=== PATIENT | female | born 1955 | race Caucasian/White ===

== ENCOUNTER 2017-01-19 09:07 | Day surgery (SDC) | payer OTHER ==
[2017-01-14 16:30] VITALS: BMI 27.0
[2017-01-19] MEDS ORDERED: PROPOFOL 20 ML ONE (10:32)
[2017-01-19 12:09] VITALS: TEMP 97.7
[2017-01-19 12:10] VITALS: BP 104/60; PULSE 59
== END 2017-01-19 12:10 | disposition home or self-care (01) ==
LOC: FASU-ENDO 09:07
PROVIDERS: ATTEND Internal Medicine Gastroenterology
PROC: 0DJD8ZZ Inspection of Lower Intestinal Tract, Via Natural or Artificial Opening Endoscopic (ICD-10-PCS; principal; 2017-01-19 11:08)
DX: Z12.11 Encounter for screening for malignant neoplasm of colon (principal); K57.30 Diverticulosis of large intestine without perforation or abscess without bleeding

== ENCOUNTER 2017-10-19 09:58 | Day surgery (SDC) | payer OTHER ==
[2017-10-08 10:31] VITALS: BMI 28.9
[~2017-10-19 09:58] MED LIST: CEFAZOLIN 2 GM in DEXTROSE 5%-WATER - 50 ML IVPB ONE; CELECOXIB 200 MG CAPSULE PO ONE; GABAPENTIN 300 MG CAPSULE (FP) PO ONE; ROPIVICAINE 0.2%/MORPH PF/KETOROLAC - 51ML DISP.SYRINGE IA ONE; TRANEXAMIC ACID 1000 MG/10 ML VIAL IVPB ONE; TRANEXAMIC ACID 1000 MG/10 ML VIAL IVPUSH ONE; VANCOMYCIN 1,000 MG VIAL (RESTRICTED TO ID ONLY) IVPB ONE; oxyCODONE HCL 10 MG SUSTAINED ACTING TABLET PO ONE
[2017-10-19] MEDS ORDERED: oxyCODONE HCL 10 MG SUSTAINED ACTING TABLET ONE (10:53)
[2017-10-19] MEDS ORDERED: PANTOPRAZOLE 40 MG TABLET (FP) ONE (10:53)
[2017-10-19] MEDS ORDERED: GABAPENTIN 300 MG CAPSULE (FP) ONE (10:54)
[2017-10-19] MEDS ORDERED: CELECOXIB 200 MG CAPSULE ONE (10:54)
[2017-10-19] MEDS: PANTOPRAZOLE 40 MG TABLET (FP) PO ONE (10:55)
[2017-10-19] MEDS ORDERED: MIDAZOLAM HCL 2 MG/2 ML SINGLE DOSE VIAL ONE (11:35)
[2017-10-19] MEDS ORDERED: ROPIVICAINE 0.2%/MORPH PF/KETOROLAC - 51ML DISP.SYRINGE IA ONE ×4 (14:38→15:19)
[2017-10-19] MEDS ORDERED: TRANEXAMIC ACID 1000 MG/10 ML VIAL IVPB ONE ×2 (14:39→14:56)
[2017-10-19] MEDS ORDERED: VANCOMYCIN 1,000 MG VIAL (RESTRICTED TO ID ONLY) IVPB ONE ×2 (14:39→14:56)
[2017-10-19] MEDS ORDERED: oxyCODONE HCL 5 MG TABLET PO PRN ×2 (15:49→16:10)
--- NOTE | 2017-10-19 16:01 | HP ---
History & Physical Update - History History: No Change - Physical Physical: No Change - Assessment Currently as noted:: 61yo female with right knee medial OA for right knee medial MAKOplasty - Plan Plan: No Change
--- NOTE | 2017-10-19 16:02 | OP ---
Operative Note - Note: Operative Date: 10/19/17 Pre-Operative Diagnosis: right knee medial OA Operation: right knee medial MAKOplasty Post-Operative Diagnosis: Same as Pre-op Surgeon: Navdeep Handy Keno Writer/Runner: Jonas Calvin Anesthesia: Spinal Estimated Blood Loss (mls): 50
[2017-10-19] MEDS ORDERED: MAGNESIUM HYDROX 2400MG/30ML ORAL SUSPENSION 30 ML CUP PO PRN (16:03)
[2017-10-19] MEDS ORDERED: ONDANSETRON 4 MG/2 ML VIAL IVPUSH PRN (16:03)
[2017-10-19] MEDS ORDERED: MAG HYDROX/AL HYDROX/SIMETH 30 ML UNIT-DOSE CUP PO PRN (16:03)
[2017-10-19] MEDS ORDERED: ACETAMINOPHEN INJECTION 100 ML IVPB ONE (16:04)
[2017-10-19] MEDS ORDERED: KETOROLAC TROMETHAMINE 30 MG/1 ML VIAL ONE (16:04)
[2017-10-19] MEDS ORDERED: ACETAMINOPHEN 1000 MG/100 ML VIAL (NON FORMULARY) IVPB ONE (16:06)
[2017-10-19] MEDS ORDERED: KETOROLAC TROMETHAMINE 30 MG/1 ML VIAL IVPUSH ONE (16:10)
[2017-10-19] MEDS ORDERED: NORETHINDRONE ACET TD SCH (16:15)
[2017-10-19] MEDS ORDERED: KETOROLAC TROMETHAMINE 30 MG/1 ML VIAL IVPUSH SCH (16:15)
[2017-10-19] MEDS ORDERED: LACTATED RINGERS SOLUTION 1,000 ML IV SCH (16:15)
[2017-10-19] MEDS ORDERED: [UNRECOGNIZED DRUG - OTHER] TD SCH (16:15)
[2017-10-19] MEDS ORDERED: ESTRADIOL TD SCH (16:15)
[2017-10-19] MEDS ORDERED: traMADol HCL 50 MG TABLET PO ONE (16:15)
[2017-10-19] MEDS: CEFAZOLIN 2 GM/D5W 2 GM/50 ML ML IVPB SCH (17:57)
[2017-10-19] MEDS ORDERED: traMADol HCL 50 MG TABLET PO SCH (18:00)
--- NOTE | 2017-10-19 20:06 | SURG ---
Surgery Business Sales Consultant Note Business Sales Consultant: Jonas Calvin PA-C Date of Service: 10/19/17 Diagnosis: right knee medial osteoarthritis Procedure: Right knee medial MAKOplasty I was present for the entirety of the operative procedure. For further detail, please refer to operative report. Visit type - Case Type Case Type: Scheduled Admission - New patient This patient is new to me today: Yes Date on this admission: 10/19/17
[2017-10-19] MEDS: GABAPENTIN 300 MG CAPSULE (FP) PO SCH (21:44)
[2017-10-19] MEDS: ASCORBIC ACID 500 MG TABLET (FP) PO SCH (21:44)
[2017-10-19] MEDS: SENNOSIDES/DOCUSATE COMBO (SENNA PLUS) TABLET (UD) PO SCH (21:44)
[2017-10-19] MEDS: CELECOXIB 200 MG CAPSULE PO SCH (21:45)
[2017-10-19] MEDS: oxyCODONE HCL 10 MG SUSTAINED ACTING TABLET PO SCH (21:45)
[2017-10-19] MEDS ORDERED: PATIENT'S OWN MEDICATION (NON-FORMULARY) (Lifitegrast [Xiidra] 1 EACH) OU SCH (22:00)
[2017-10-20] MEDS ORDERED: DEXAMETHASONE SOD PHOSPHATE 10 MG/1 ML VIAL IVPB ONE
[2017-10-20] MEDS: KETOROLAC TROMETHAMINE 30 MG/1 ML VIAL IVPUSH SCH ×3 (00:52→13:05)
[2017-10-20] MEDS: traMADol HCL 50 MG TABLET PO SCH ×4 (00:53→17:37)
[2017-10-20] MEDS: CEFAZOLIN 2 GM/D5W 2 GM/50 ML ML IVPB SCH (02:13)
[2017-10-20] MEDS ORDERED: ASPIRIN 325 MG TABLET PO SCH (08:00)
[2017-10-20 08:32] LABS: ANION GAP 7 (8-16); CALCIUM 9.6 mg/dl (8.4-10.2); CO2 26 mmol/L (22-28); CREATININE 0.7 mg/dl (0.6-1.3); GLUCOSE,RANDOM 144 mg/dl (74-106)
[2017-10-20 08:43] LABS: MCH 32.3 pg (25.7-33.7); MCHC 34.1 g/dl (32.0-36.0); MEAN CELL VOLUME 94.9 fl (80-96); PLATELET COUNT 249 K/MM3 (134-434); RDW 12.3 % (11.6-15.6)
[2017-10-20] MEDS: SENNOSIDES/DOCUSATE COMBO (SENNA PLUS) TABLET (UD) PO SCH (09:23)
[2017-10-20] MEDS: CELECOXIB 200 MG CAPSULE PO SCH (09:23)
[2017-10-20] MEDS: PANTOPRAZOLE 40 MG TABLET (FP) PO ONE (09:23)
[2017-10-20] MEDS: GABAPENTIN 300 MG CAPSULE (FP) PO SCH (09:23)
[2017-10-20] MEDS: oxyCODONE HCL 10 MG SUSTAINED ACTING TABLET PO SCH (09:23)
[2017-10-20] MEDS: ASCORBIC ACID 500 MG TABLET (FP) PO SCH (09:23)
[2017-10-20] MEDS ORDERED: PANTOPRAZOLE 40 MG TABLET (FP) PO SCH (10:00)
[2017-10-20] MEDS ORDERED: MULTIVITAMINS (DAILY MVI) TABLET (FP) PO SCH (10:00)
--- NOTE | 2017-10-20 14:22 | PN ---
Progress Note (short form) - Note Progress Note: 61F POD1 s/p medial right knee makoplasty under spinal anesthetic with peripheral nerve blocks for post operative pain control. Pt is doing well, states that pain is well controlled, does not report any anesthetic complications. Sensory and motor function is intact in bilateral lower extremities.
[2017-10-20 14:26] VITALS: BP 109/44; PULSE 62; TEMP 98.3
--- NOTE | 2017-10-20 18:45 | PN ---
Progress Note (short form) - Note Progress Note: Pt seen and examined. Doing well. Walked 700+ feet today. AVSS Selected Entries 10/20/17 14:25 Temperature 98.3 F Pulse Rate 62 Respiratory 16 Rate Blood Pressure 109/44 O2 Sat by Pulse 99 Oximetry (%) Laboratory Tests 10/20/17 10/20/17 07:00 07:00 WBC 14.0 H Hgb 13.2 Hct 38.9 Plt Count 249 Sodium 135 L Potassium 4.8 Chloride 102 Carbon Dioxide 26 Anion Gap 7 L BUN 16 Creatinine 0.7 Random Glucose 144 H Calcium 9.6 Gen: NAD RLE: spotty SS drainage on Aquacel, less than 2cm. NVID A/P 61yo female POD#1 s/p right medial MAKOplasty partial knee replacement 1. D/C home today - f/u in office in 10-14 days
--- NOTE | 2017-10-20 18:53 | DS ---
Physical Examination Vital Signs: Vital Signs Temperature 98.3 F 10/20/17 14:25 Pulse Rate 62 10/20/17 14:25 Respiratory Rate 16 10/20/17 14:25 Blood Pressure 109/44 10/20/17 14:25 O2 Sat by Pulse Oximetry (%) 99 10/20/17 14:25 Labs: CBC, BMP 10/20/17 07:00 10/20/17 07:00 Discharge Summary Reason For Visit: OSTEOARTHRITIS RIGHT KNEE Current Active Problems Osteoarthritis of right knee (Acute) Procedures: Principal: right knee MAKOplasty partial (medial) knee replacement Hospital Course: Admitted for elective surgery. Procedure performed without complications. Pt received postoperative antibiotic prophylaxis and DVT ppx. Ambulated with physical therapy. Stable for discharge home with outpatient followup. Condition: Stable - Instructions Diet, Activity, Other Instructions: Dr. Handy - Knee Replacement Instructions Keep the Aquacel dressing on until removed by Dr. Handy in 10-14 days - it is antibacterial and waterproof and you can shower with it on. Call the office for a follow-up appointment with Dr. Handy in 10-14 days. [phone] Take one Aspirin 325mg daily for 6 weeks to prevent blood clots in your legs. Take one Pantoprazole 40mg daily for 6 weeks to protect against heartburn and ulcers. Take Celebrex 200mg twice daily for 30 days to reduce swelling and inflammation. Take a multivitamin, extra vitamin C supplement, and stool softener daily. For pain: *Mild pain (1-3/10): Take 1 Tramadol tablet every 4 hours as needed. Moderate pain (4-6/10): Take 1 Tramadol tablet and 1 Percocet tablet every 4 hours as needed. Severe pain (7-10/10): Take 1 Tramadol tablet and 2 Percocet tablets every 4 hours as needed. Activity: You can put as much weight on the operative leg as you want. Right after you get home, there will be a physical therapist coming to your house to help you walk around and bend/straighten your knee. After your follow-up appointment, you will be sent for more intensive outpatient physical therapy which will include machines and equipment that the home therapist cannot bring to your house. Always use a walker or cane for balance and to prevent falls. Disposition: [facility]/HOME HEALTH CARE - Home Medications Comprehensive Discharge Medication List: Ambulatory Orders Lifitegrast [Xiidra] 1 each OU BID 01/14/17 Calcium Carbonate/Vitamin D3 [Calcium 600-Vit D3 800 Caplet] 1 each PO DAILY Cholecalciferol (Vitamin D3) [Vitamin D3 -] 1,000 unit PO DAILY 10/08/17 Estradiol/Norethindrone Acet [Combipatch 0.05-0.14 mg Ptch] 1 each TD ASDIR Ascorbic Acid [Vitamin C -] 500 mg PO BID tablet 10/20/17 Aspirin [ASA -] 325 mg PO DAILY@0800 tablet 10/20/17 Celecoxib [CeleBREX -] 200 mg PO BID #60 capsule 10/20/17 Multivitamins [Multivit ([facility] Formul[facility])] 1 tab PO DAILY tab 10/20/17 Oxycodone HCl/Acetaminophen [Percocet 5-325 mg Tablet] 1 - 2 tab PO Q4H PRN #60 tablet MDD 8 10/20/17 Pantoprazole Sodium [Protonix -] 40 mg PO DAILY #40 tablet.ec 10/20/17 Sennosides/Docusate Sodium [Pericolace -] 1 tablet PO BID tablet 10/20/17 Tramadol HCl [Ultram -] 50 mg PO Q4H PRN #90 tablet MDD 6 10/20/17
== END 2017-10-20 18:55 | disposition home health service (06) ==
LOC: FASU 09:58 → FM/S 17:31 → FASU 10-20 18:55
PROVIDERS: ATTEND Student in an Organized Health Care Education/Training Program
PROC: 8E0YXBZ Computer Assisted Procedure of Lower Extremity (ICD-10-PCS; 2017-10-19)
PROC: 8E0Y0CZ Robotic Assisted Procedure of Lower Extremity, Open Approach (ICD-10-PCS; 2017-10-19)
PROC: 0SRC0L9 Replacement of Right Knee Joint with Medial Unicondylar Synthetic Substitute, Cemented, Open Approach (ICD-10-PCS; principal; 2017-10-19 12:13)
DX: M17.11 Unilateral primary osteoarthritis, right knee (principal)
CPT/HCPCS: 20985; 27446; C1776; S2900; 36415; 73560-TC-RT; 80048; 85027; 94010; 94760; 97116-GP; 97162-GP

== ENCOUNTER 2023-04-27 17:07 | Emergency (ER) | payer OTHER ==
[2023-04-27 17:23] VITALS: BP 137/75; PULSE 52; RESP 16; TEMP 98.2; BMI 26.9
[2023-04-27] MEDS ORDERED: ACETAMINOPHEN 500 MG TABLET (FP) PO ONE (17:32)
[2023-04-27] MEDS ORDERED: ACETAMINOPHEN 500 MG TABLET (FP) ONE (17:43)
[2023-04-27] MEDS ORDERED: ACETAMINOPHEN 1000 MG/100 ML BAG IVPB ONE (17:55)
[2023-04-27] MEDS ORDERED: ACETAMINOPHEN INJECTION 100 ML IVPB ONE (17:58)
[2023-04-27 18:05] LABS: HEMATOCRIT 38.8 % (32.4-45.2); HEMOGLOBIN 13.3 G/dL (10.7-15.3); MCH 32.9 pg (25.7-33.7); MCHC 34.2 g/dl (32.0-36.0); MEAN CELL VOLUME 96.2 fl (80-96); MEAN PLT VOLUME 8.3 fl (7.5-11.1); PLATELET COUNT 238.7 10^3/uL (134-434); RBC 4.03 10^6/uL (3.60-5.2); RDW 14.2 % (11.6-15.6); WHITE BLOOD COUNT 7.8 10^3/uL (4.0-10.8)
[2023-04-27 18:17] LABS: PLATELET ESTIMATE ADEQUATE
[2023-04-27 18:21] LABS: ALBUMIN 3.8 g/dl (3.4-5.0); BILIRUBIN,TOTAL 1.4 mg/dl (0.2-1); CALCIUM 9.5 mg/dl (8.5-10); CREATININE 0.8 mg/dl (0.55-1.3); POTASSIUM 4.6 mmol/L (3.5-5.1); TOT PROT 6.6 g/dl (6.4-8.2)
[2023-04-27] MEDS ORDERED: KETOROLAC TROMETHAMINE 30 MG/1 ML VIAL IVPUSH ONE (19:11)
[2023-04-27] MEDS ORDERED: KETOROLAC TROMETHAMINE 30 MG/1 ML VIAL ONE (19:15)
== END 2023-04-27 21:50 | disposition home or self-care (01) ==
LOC: FER 17:07
PROC: 3E033NZ Introduction of Analgesics, Hypnotics, Sedatives into Peripheral Vein, Percutaneous Approach (ICD-10-PCS; principal; 2023-04-27)
PROC: 3E033GC Introduction of Other Therapeutic Substance into Peripheral Vein, Percutaneous Approach (ICD-10-PCS; 2023-04-27)
DX: R10.11 Right upper quadrant pain (principal)
CPT/HCPCS: 36415; 74176-TC; 76705-TC; 80053; 81003; 85027; 87086; 99285-25